=== PATIENT | male | born 1995 | race Caucasian/White ===

== ENCOUNTER 2016-09-21 09:08 | Emergency (ER) | payer OTHER ==
[~2016-09-21] VITALS: Ht 188 cm; Wt 91.5 kg
[~2016-09-21 09:08] MED LIST: ADDE30XR PO
[2016-09-21 09:33] VITALS: BP 137/74; PULSE 75; RESP 16; TEMP 98.9; O2SAT 97
--- NOTE | 2016-09-21 09:36 | PD ---
HPI Chief Complaint: Injury Time Seen by Provider: 09:34 Travel History International Travel<30 days: No Contact w/Intl Traveler<30days: No Traveled to known affect area: No History of Present Illness HPI 21-year-old male came to the emergency room with history of right hand injury after he punched a wall one week ago. Since then he said his hand is hurting and he is having difficulty moving his wrist. Vital signs were stable. He is otherwise a healthy person. Patient is right handed. He could not grasp anything with his right hand or lift anything because of the pain. ON LICENSE OF [facility] Past Medical History Narrative Medical List of his past medical, surgical, social and family history is reviewed from the nursing note. ADHD: Yes Diminished Hearing: No Immunizations Current: Yes Past Surgical History Ear Surgery: Yes (BILAT TUBES P[-ADNOIDS REMOVED) Tympanostomy Tube: Yes (CHILD) Social History Alcohol Use: Yes Tobacco Use: Yes Substance Use: Yes (OCCAS THC) Allergies-Medications (Allergen,Severity, Reaction): Coded Allergies: Penicillin (Verified Allergy, Severe, rash, 09/21/16) Augmentin (Verified Allergy, Mild, rash, 09/21/16) Comments List of his allergies reviewed from the nursing note. Reported Meds & Prescriptions Reported Meds & Active Scripts Active Reported Adderall Xr 24 HR (Amphetamine/Dextroamphetamine) 30 Mg Cap 30 Mg PO DAILY Once daily in the morning. Narrative Medication Rest of his home medications reviewed from the nursing note. Review of Systems Except as stated in HPI: all other systems reviewed are Neg Physical Exam Narrative GENERAL: Awake, alert, no obvious distress SKIN: Warm and dry. HEAD: Atraumatic. Normocephalic. EYES: Pupils equal and round. No scleral icterus. No injection or drainage. ENT: No nasal bleeding or discharge. Mucous membranes pink and moist. NECK: Trachea midline. No JVD. CARDIOVASCULAR: Regular rate and rhythm. No murmur appreciated. RESPIRATORY: No accessory muscle use. Clear to auscultation. Breath sounds equal bilaterally. GASTROINTESTINAL: Abdomen soft, non-tender, nondistended. Hepatic and splenic margins not palpable. MUSCULOSKELETAL: Right hand deformity and swelling especially at the fourth and the fifth metacarpal area. Full range of motion at the wrist joint due to the pain. No clubbing. No cyanosis. No edema. Distal pulses and sensation intact. NEUROLOGICAL: Awake and alert. No obvious cranial nerve deficits. Motor grossly within normal limits. Normal speech. PSYCHIATRIC: Appropriate mood and affect; insight and judgment normal. Data Data Last Documented VS Vital Signs Date Time Temp Pulse Resp B/P Pulse Ox O2 Delivery O2 Flow Rate FiO2 09/21/16 09:33 98.9 75 16 137/74 97 Orders Hand, Complete ([id number]) (09/21/16 ) Wrist, Complete ([id number]) (09/21/16 ) Splint Or Brace Apply/Monitor (09/21/16 11:07) Fiberglass Splint Forearm Adul (09/21/16 ) [facility] Medical Decision Making Medical Screen Exam Complete: Yes Emergency Medical Condition: Yes Medical Record Reviewed: Yes Differential Diagnosis Boxer's fracture, distal radius ulna fracture Narrative Course 9:55 AM awaiting for the x-ray to be done and resulted. 11:17 AM the x-ray was just read as possible fifth metacarpal base fracture. I have ordered an ulnar gutter splint. Patient will be discharged to follow up with his surgeon. Procedures Procedure Narrative Patient informed of risks, benefits and options. Informed consent obtained. Primary performer: Dr. Nunez Document Image Technician: technology instructor A 4 inch sleeve placed over the right hand and forearm. Padding applied to site. Extremity placed in anatomical position. A ulnar gutter splint was formed with 4 inch ortho glass and applied to right hand and forearm. A 4 inch tere bandage was wrapped over splint. After splint applied; patient reported normal sensation, distal extremities were warm and pink and capillary refill was < 2 secs. EKG Prior to Arrival: No Diagnosis Primary Impression: Metacarpal bone fracture Qualified Code: S62.346A - Closed nondisplaced fracture of base of fifth metacarpal bone of right hand, initial encounter Additional Impression: Closed hamate fracture Qualified Code: S62.144A - Closed nondisplaced fracture of body of hamate of right wrist, initial encounter Referrals: Greg Triplett III, MD 2 days Additional Instructions: Please follow-up with the hand surgeon whose name and number been provided to you. Keep the splint on and do not get it wet. Do not be lifting anything heavy with that hand. Med/Other Pt SpecificInfo: No Change to Meds Disposition: 01 DISCHARGE HOME Condition: Stable Lucien Nunez MD Sep 21, 2016 09:36
[2016-09-21] MEDS ORDERED: ADDE30XR PO (09:38)
--- NOTE | 2016-09-21 11:05 | RADHPO ---
EXAM DATE/TIME: 09/21/2016 09:52 [facility] COMPARISON: No previous studies available for comparison. INDICATIONS: Right wrist pain; punched wall 1 week ago. MEDICAL HISTORY: None. SURGICAL HISTORY: None. ENCOUNTER: Initial ACUITY: 1 week PAIN SCORE: 10/10 LOCATION: Right wrist. FINDINGS: On the lateral view there is a bony density seen dorsal to the distal carpal row. On the oblique vie w this appears to be originate from the posterior distal aspect of the hamate. There is some hazy de nsity likely representing edema in this region seen on the AP view. CONCLUSION: Suspected fracturing with a fracture fragment seen in the dorsal soft tissues dorsal to the distal ca rpal row with some hazy density and lack of definition of the cortex at the base of the fifth metacar pal and some associated soft tissue swelling. Jad Jenkins MD on September 21, 2016 at 10:58 Board Certified Radiologist. This report was verified electronically.
--- NOTE | 2016-09-21 11:15 | RADHPO ---
EXAM DATE/TIME: 09/21/2016 09:57 [facility] COMPARISON: No previous studies available for comparison. INDICATIONS: Right hand pain; punched wall 1 week ago. MEDICAL HISTORY: None. SURGICAL HISTORY: None. ENCOUNTER: Initial ACUITY: 1 week PAIN SCORE: 10/10 LOCATION: Right 4th & 5th digits. FINDINGS: There is a bony density seen adjacent to the dorsal medial aspect of the hamate. This is concerning for an area of fracturing. There is some soft tissue swelling in this region. There is a possible f racture seen. CONCLUSION: Suspected fracturing of the distal dorsal medial aspect of the hamate. Jad Jenkins MD on September 21, 2016 at 11:03 Board Certified Radiologist. This report was verified electronically.
== END 2016-09-21 11:50 | disposition home or self-care (01) ==
LOC: PHEFT 09:08
DX: S62.346A Nondisplaced fracture of base of fifth metacarpal bone, right hand, initial encounter for closed fracture (principal); S62.144A Nondisplaced fracture of body of hamate [unciform] bone, right wrist, initial encounter for closed fracture; W22.01XA Walked into wall, initial encounter; Y99.8 Other external cause status
CPT/HCPCS: 29125; 73110; 73130